=== PATIENT | female | born 1995 ===

== ENCOUNTER 2017-02-09 15:45 | Emergency (ER) | payer BC ==
[2017-02-09 16:12] VITALS: BP 127/82
--- NOTE | 2017-02-09 16:28 | ED ---
Throat Pain/Nasal Congestion - HPI Summary HPI Summary: 22 yr old female with frontal sinus pressure and congestion for three days with right ear pain. Onset three days ago. She denies SOB, Cough, fever, chills. She does not have post nasal drip. She denies sore throat. She has no allergies to any medications. - History of Current Complaint Chief Complaint: UCRespiratory Time Seen by Provider: 02/09/17 15:59 - Allergies/Home Medications Allergies/Adverse Reactions: Allergies Allergy/AdvReac Type Severity Reaction Status Date / Time No Known Allergies Allergy Verified 02/09/17 16:12 Home Medications: Home Medications Ibuprofen [Ibuprofen 200 MG] 400 mg PO PRN 02/09/17 [History] Norethin Acet & Estrad-Fe [Minastrin 24 Fe 1-20 mg-Mcg(24)] 1 chw PO DAILY 02/09 [History Confirmed 02/09/17] Phenylephrine HCl (Oral) [Nasal Decongestant] 10 mg PO PRN 02/09/17 [History] PMH/Surg Hx/FS Hx/Imm Hx Previously Healthy: Yes - Surgical History Surgery Procedure, Year, and Place: T & A Infectious Disease History: No Infectious Disease History: Denies: Traveled Outside the [place] in Last 30 Days - Family History Known Family History: Positive: None - Social History Lives: Alone Alcohol Use: Weekly Substance Use Type: Reports: None Smoking Status (MU): Never Smoked Tobacco Review of Systems Constitutional: Negative Eyes: Negative Positive: Ear Ache, Other - sinus congestion Gastrointestinal: Negative Genitourinary: Negative Musculoskeletal: Negative Skin: Negative Neurological: Negative Psychological: Normal All Other Systems Reviewed And Are Negative: Yes Physical Exam Triage Information Reviewed: Yes Vital Signs On Initial Exam: Initial Vitals Temp Pulse Resp BP Pulse Ox 97.8 F 94 14 127/82 100 02/09/17 16:07 02/09/17 16:07 02/09/17 16:07 02/09/17 16:07 02/09/17 16:07 Vital Signs Reviewed: Yes Appearance: Positive: Well-Appearing, No Pain Distress Skin: Positive: Warm, Skin Color Reflects Adequate Perfusion Head/Face: Positive: Normal Head/Face Inspection Eyes: Positive: Normal, EOMI ENT: Positive: TMs normal, Other - bilateral frontal sinus tenderness to percussion. Neck: Positive: Supple Respiratory/Lung Sounds: Positive: Clear to Auscultation, Breath Sounds Present Cardiovascular: Positive: Normal, RRR. Negative: Murmur Abdomen Description: Positive: Nontender Musculoskeletal: Positive: Normal, Strength/ROM Intact Neurological: Positive: Normal, Sensory/Motor Intact, Alert, Oriented to Person Place, Time, CN Intact II-III Psychiatric: Positive: Normal Diagnostics - Vital Signs Vital Signs Temp Pulse Resp BP Pulse Ox 02/09/17 16:07 97.8 F 94 14 127/82 100 - Laboratory Lab Statement: Any lab studies that have been ordered have been reviewed, and results considered in the medical decision making process. EENT Course/Dx - Course Course Of Treatment: 22 yr old female with sinusitis. Will Rx with Augmentin. - Diagnoses Provider Diagnoses: Sinusitis Discharge - Discharge Plan Condition: Good Disposition: HOME Prescriptions: Amoxicillin/Clavulanate TAB* [Augmentin TAB 875*] 875 mg PO BID #20 tab Patient Education Materials: Sinusitis (ED) Referrals: [facility] [facility] [Outside]
== END 2017-02-09 16:34 | disposition home or self-care (01) ==
LOC: UCCORT 15:45
DX: J32.9 Chronic sinusitis, unspecified (principal)
CPT/HCPCS: 99202; G0463